=== PATIENT | female | born 1965 | race Caucasian/White ===

== ENCOUNTER 2017-02-02 07:02 | Day surgery (SDC) | payer MEDICAID ==
[2017-02-02] MEDS ORDERED: Lactated Ringers 1,000 ML IV SCH (07:45)
[2017-02-02] MEDS ORDERED: Midazolam 1 MG/ML 2 ML SDV ONE (08:12)
[2017-02-02] MEDS ORDERED: Propofol 200 MG/20 ML SDV ONE ×2 (08:12→08:40)
[2017-02-02] MEDS ORDERED: fentaNYL 100 MCG/2 ML SDV ONE (08:12)
[2017-02-02 10:02] VITALS: BP 123/76
--- NOTE | 2017-02-02 13:59 | OR ---
DATE OF PROCEDURE: 02/02/2017 PREOPERATIVE DIAGNOSES: Colon cancer screening, chronic diarrhea. POSTOPERATIVE DIAGNOSES: Unremarkable colonoscopy, chronic diarrhea. PROCEDURE: Colonoscopy to the cecum with random colon biopsies. ANESTHESIA: IV anesthesia with monitored anesthesia care. INDICATION: This 51-year-old white female is referred for a colonoscopy for colon cancer screening. She has never had a colonoscopic exam. She did mention off hand that she has chronic diarrhea. Because of this, we plan on random colon biopsies if everything looks fine. I counseled her for the procedure including risks and alternatives , and she gave her informed consent to proceed. DESCRIPTION OF PROCEDURE: The patient was placed in the left lateral decubitus position. IV anesthesia was administered by the Anesthesia Service. Time-out was held. A rectal exam was performed, which was unremarkable. The flexible video Olympus colonoscope was introduced through her anus, up her rectum, and out her colon all way to the cecum. Once the cecum was reached, the scope was slowly withdrawn examining the mucosa throughout. No mucosal abnormalities were noted. We did obtain random colonic biopsies throughout the entire colon. The scope was retroflexed in the rectum with the distal rectum appearing unremarkable. The scope was straightened and removed. She tolerated the procedure well. Alan Avelar MD /[id number] NURY
== END 2017-02-02 10:03 | disposition home or self-care (01) ==
LOC: JP.SDS 07:02
PROVIDERS: ATTEND Surgery
PROC: 0DBE8ZX Excision of Large Intestine, Via Natural or Artificial Opening Endoscopic, Diagnostic (ICD-10-PCS; principal; 2017-02-02)
DX: K52.9 Noninfective gastroenteritis and colitis, unspecified (principal)
CPT/HCPCS: 45380; J2250; J2704; J3010; J7120; 88305

== ENCOUNTER → 2018-11-01 | Outpatient (CLI) | payer MEDICAID ==
[~2018-11-01] MED LIST: Gadoteridol 279.3 MG/ML 15 ML SDV IV SCH
--- NOTE | 2018-11-02 16:11 | CRLMR ---
INDICATION: Left trigeminal neuralgia. Comparison 01/20/2016. TECHNIQUE: Multiplanar T1, T2, FLAIR and diffusion-weighted imaging. Post gadolinium T1 weighted sequences. Additional pre and post gadolinium sequences of the skullbase. FINDINGS: Normal brain parenchymal morphology and signal intensity. Stable 13 mm T2 hyperintense cystic lesion along the medial left temporal lobe consistent with an arachnoid cyst or choroidal fissure cyst. No evidence of enhancement or surrounding edema. No evidence of significant mass effect upon the immediately adjacent left cerebral peduncle. No intracranial hemorrhage. No abnormal ventricular dilatation. Intracranial vascular flow voids are preserved. No mass effect. No midline shift. No restricted diffusion to suggest acute ischemia. No abnormal enhancement or enhancing lesions. Dedicated sequences the skullbase demonstrates normal course of cranial nerves 7 and 8 from the root entry zone to the fundus of the IAC`s. No abnormal mass or enhancement. There is a vascular structure which courses immediately inferior to the root entry zone and cisternal segment of the left trigeminal nerve with very minimal deviation laterally.. Finding may represent an underlying vascular loop. No abnormal enhancement along the course of the trigeminal nerves. Normal cavernous sinuses bilaterally. No abnormal widening or enhancement at foramen ovale bilaterally. Bilateral orbits are unremarkable. Normal appearing sella. Visualized paranasal sinuses and mastoid air cells are unremarkable. IMPRESSION: 1. No acute intracranial abnormality 2. Normal brain parenchymal morphology and signal intensity. 3. 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 4. Dedicated sequences of the skullbase demonstrates vascular structure coursing immediately inferior to the root entry zone the cisternal segment of the left trigeminal nerve with very minimal deviation. Finding may represent an underlying vascular loop. 5. No abnormal enhancement along the course of the bilateral trigeminal nerves. Normal cavernous sinuses bilaterally. Dictated by Ben Paul MD @ 11/02/2018 4:10:22 PM Dictated by: Ben Paul MD @ 11/02/2018 16:10:30 (Electronically Signed)
== END ==
LOC: JP.MRI 14:19
PROVIDERS: ATTEND Physician Assistant
DX: G50.0 Trigeminal neuralgia (principal); G43.709 Chronic migraine without aura, not intractable, without status migrainosus
CPT/HCPCS: 70553; A9576; A9579

== ENCOUNTER 2018-11-23 07:09 | Emergency (ER) | payer MEDICAID ==
[2018-11-23] MEDS ORDERED: Metoclopramide 10 MG/2 ML SDV IVPUSH ONE (07:54)
[2018-11-23] MEDS ORDERED: Cholestyramine/Sucrose Powder 4 GM Packet PO ONE (07:54)
[2018-11-23] MEDS ORDERED: Lactated Ringers 1,000 ML IV ONE (07:54)
[2018-11-23] MEDS ORDERED: HYDROmorphone 0.5 MG/0.5 ML Syringe IVPUSH ONE (07:55)
--- NOTE | 2018-11-23 08:02 | EDM.PDOC ---
ED HPI GENERAL MEDICAL PROBLEM - General Chief Complaint: Gastrointestinal Problem Stated Complaint: WEAK Time Seen by Provider: 11/23/18 07:45 Source of Information: Reports: Patient, RN History Limitations: Reports: Other (no old records available regarding her current condition, her provider not immediately available.) - History of Present Illness INITIAL COMMENTS - FREE TEXT/NARRATIVE: 53 yo female was dx about a year ago with colitis, later diagnosed via colonoscopy with 'lymphocytic colitis'. She is managed with oral budesonide. Initially this med controlled her condition, over the past month her sx's have markedly worsened and a referral was placed to GI that she has not yet had. She has had nausea recently that has not been tx'd that has progressed now to include vomiting (four times since last night). She states she is stooling every few minutes stool with mucous, but no blood. There is no fever. She was told she could take Imodium up to 4 times/daily, but his is not helping. She last had blood work about 2 weeks ago mainly to check her Tegretol levels for management of her trigeminal neuralgia. She had an appt in the clinic yesterday and was told there was nothing more they could do for her and that she would have to go to the ER. Onset: Gradual Onset Date: 11/22/17 Duration: Week(s): (52, worse over the past 4 weeks), Constant, Getting Worse Location: Reports: Abdomen Quality: Reports: Ache Severity: Moderate Improves with: Reports: None Worsens with: Reports: Other (time) Context: Reports: Other (see HPI) Associated Symptoms: Reports: Loss of Appetite, Nausea/Vomiting. 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 (see below) (budesonide orally and lopermide 4 daily) Abdominal Pain Score (Numeric/FACES): 9 - Related Data Allergies Allergy/AdvReac Type Severity Reaction Status Date / Time acetaminophen [From Vicodin] Allergy Cannot Verified 11/01/18 14:30 Remember hydrocodone [From Vicodin] Allergy Cannot Verified 11/01/18 14:30 Remember propoxyphene napsylate Allergy Cannot Verified 11/01/18 14:30 [From Darvocet-N 100] Remember Home Meds: Home Meds busPIRone [Buspar] 7.5 mg PO BID 09/08/15 [History] Gabapentin [Neurontin] 800 mg PO TID 09/15/16 [History] carBAMazepine [Carbamazepine] 200 mg PO BEDTIME 09/15/16 [History] LORazepam [Ativan] 0.5 mg PO TID PRN 01/31/17 [History] Baclofen 10 mg PO BID 11/23/18 [History] Budesonide [Budesonide EC] 9 mg PO DAILY 11/23/18 [History] Cholestyramine (With Sugar) [Cholestyramine Powder] 4 g PO BID 11/23/18 [History ] Loperamide [Imodium] 2 mg PO QID PRN 11/23/18 [History] Mesalamine 800 mg PO TID #30 tablet.dr 11/23/18 [Rx] Ondansetron [Zofran ODT] 4 mg PO Q6H PRN #14 tab.dis 11/23/18 [Rx] Potassium Chloride 10 meq PO TID #30 cap.er 11/23/18 [Rx] Past Medical History HEENT History: Reports: Impaired Vision, Other (See Below) Other HEENT History: trigeminal neurologia Cardiovascular History: Reports: None Respiratory History: Reports: None Gastrointestinal History: Reports: Chronic Diarrhea, Pancreatitis Genitourinary History: Reports: None [employer] History: Reports: Musculoskeletal History: Reports: None Neurological History: Reports: None Psychiatric History: Reports: Anxiety, Depression Endocrine/Metabolic History: Reports: None Hematologic History: Reports: None Immunologic History: Reports: None Oncologic (Cancer) History: Reports: None Dermatologic History: Reports: None - Infectious Disease History Infectious Disease History: Reports: Chicken Pox, Measles, Mumps - Past Surgical History Head Surgeries/Procedures: Reports: None HEENT Surgical History: Reports: None GI Surgical History: Reports: Appendectomy, Hernia Repair/Other Other GI Surgeries/Procedures: lymphocytic colitis. Female Surgical History: Reports: Oophorectomy Social & Family History - Family History HEENT: Reports: None Cardiac: Reports: None Respiratory: Reports: None GI: Reports: None : Reports: None OBGYN: Reports: None Musculoskeletal: Reports: None Neurological: Reports: None Psychiatric: Reports: None Endocrine/Metabolic: Reports: None Hematologic: Reports: None Immunologic: Reports: None Dermatologic: Reports: None Oncologic: Reports: None - Tobacco Use Smoking Status *Q: Heavy Tobacco Smoker Years of Tobacco use: 36 Packs/Tins Daily: 0.2 - Caffeine Use Caffeine Use: Reports: Coffee - Recreational Drug Use Recreational Drug Use: No ED ROS GENERAL - Review of Systems Review Of Systems: See Below Constitutional: Reports: No Symptoms HEENT: Reports: No Symptoms Respiratory: Reports: No Symptoms Cardiovascular: Reports: Lightheadedness (with standing) Endocrine: Reports: No Symptoms GI/Abdominal: Reports: Abdominal Pain, Diarrhea, Decreased Appetite, Nausea, Vomiting. Denies: Black Stool, Bloody Stool, Constipation, Distension, Flatus, Hematemesis, Hematochezia, Melena : Reports: Dysuria Musculoskeletal: Reports: No Symptoms Skin: Reports: No Symptoms Neurological: Reports: No Symptoms Psychiatric: Reports: No Symptoms ED EXAM, GI/ABD - Physical Exam Exam: See Below Text/Narrative:: Strong odor of tobacco smoke present. Exam Limited By: No Limitations General Appearance: Alert, WD/WN, No Apparent Distress, Other (Appears older than her stated age. ) Eyes: Bilateral: Normal Appearance Ears: Normal External Exam, Normal Canal, Hearing Grossly Normal, Normal TMs Nose: Normal Inspection, No Blood Throat/Mouth: Normal Inspection, Normal Lips, Normal Oropharynx, Normal Voice ( Voice consistent with chronic smoker.), No Airway Compromise Head: Atraumatic, Normocephalic Neck: Normal Inspection Respiratory/Chest: No Respiratory Distress, Lungs Clear, Normal Breath Sounds, No Accessory Muscle Use Cardiovascular: Regular Rate, Rhythm, No Edema GI/Abdominal Exam: Normal Bowel Sounds, Soft, No Distention, Tender (mild diffuse). No: Non-Tender Back Exam: Normal Inspection. No: CVA Tenderness (R), CVA Tenderness (L) Extremities: Normal Inspection, Normal Range of Motion, Non-Tender, No Pedal Edema Neurological: Alert, Oriented, CN II-XII Intact, Normal Cognition, No Motor/ Sensory Deficits Psychiatric: Normal Affect, Normal Mood Skin Exam: Warm, Dry, Intact, Normal Color, No Rash Course - Vital Signs Last Recorded V/S: Last Vital Signs Temp 36.0 C 11/23/18 08:29 Pulse 79 11/23/18 08:29 Resp 16 11/23/18 08:29 BP 126/58 L 11/23/18 08:29 Pulse Ox 94 L 11/23/18 08:29 - Orders/Labs/Meds Labs: Laboratory Tests 11/23/18 11/23/18 11/23/18 Range/Units 07:55 07:55 08:29 WBC 14.9 H (4.5-11.0) K/uL RBC 4.84 (3.30-5.50) M/uL Hgb 15.3 H (12.0-15.0) g/dL Hct 45.2 (36.0-48.0) % MCV 93 (80-98) fL MCH 32 H (27-31) pg MCHC 34 (32-36) % Plt Count 302 (150-400) K/uL Sodium 141 (140-148) mmol/L Potassium 3.5 L (3.6-5.2) mmol/L Chloride 105 (100-108) mmol/L Carbon Dioxide 25 (21-32) mmol/L Anion Gap 14.5 H (5.0-14.0) mmol/L BUN 10 (7-18) mg/dL Creatinine 0.7 (0.6-1.0) mg/dL Est Cr Clr Drug Dosing 78.94 mL/min Estimated GFR (MDRD) > 60 (>60) Glucose 106 (74-106) mg/dL Calcium 9.2 (8.5-10.1) mg/dL Magnesium (1.8-2.4) mg/dL Total Bilirubin 0.3 (0.2-1.0) mg/dL AST 34 (15-37) U/L ALT 46 D (12-78) U/L Alkaline Phosphatase 90 (46-116) U/L Total Protein 6.5 (6.4-8.2) g/dL Albumin 3.2 L (3.4-5.0) g/dL Globulin 3.3 (2.3-3.5) g/dL Albumin/Globulin Ratio 1.0 L (1.2-2.2) Urine Color Yellow Urine Appearance Clear Urine pH 6.0 (4.5-8.0) Ur Specific [employer] [place] 1.010 (1.008-1.030) Urine Protein Negative (NEGATIVE) mg/dL Urine Glucose (UA) Normal (NEGATIVE) mg/dL Urine Ketones Negative (NEGATIVE) mg/dL Urine Occult Blood Negative (NEGATIVE) Urine Nitrite Negative (NEGATIVE) Urine Bilirubin Negative (NEGATIVE) Urine Urobilinogen Normal (NORMAL) mg/dL Ur Leukocyte Esterase Negative (NEGATIVE) Urine RBC 0-5 (0-5) Urine WBC Not seen (0-5) Ur Epithelial Cells Not seen Amorphous Sediment Not seen Urine Bacteria Not seen Urine Mucus Not seen 11/23/18 Range/Units 08:37 WBC (4.5-11.0) K/uL RBC (3.30-5.50) M/uL Hgb (12.0-15.0) g/dL Hct (36.0-48.0) % MCV (80-98) fL MCH (27-31) pg MCHC (32-36) % Plt Count (150-400) K/uL Sodium (140-148) mmol/L Potassium (3.6-5.2) mmol/L Chloride (100-108) mmol/L Carbon Dioxide (21-32) mmol/L Anion Gap (5.0-14.0) mmol/L BUN (7-18) mg/dL Creatinine (0.6-1.0) mg/dL Est Cr Clr Drug Dosing mL/min Estimated GFR (MDRD) (>60) Glucose (74-106) mg/dL Calcium (8.5-10.1) mg/dL Magnesium 1.9 (1.8-2.4) mg/dL Total Bilirubin (0.2-1.0) mg/dL AST (15-37) U/L ALT (12-78) U/L Alkaline Phosphatase (46-116) U/L Total Protein (6.4-8.2) g/dL Albumin (3.4-5.0) g/dL Globulin (2.3-3.5) g/dL Albumin/Globulin Ratio (1.2-2.2) Urine Color Urine Appearance Urine pH (4.5-8.0) Ur Specific [employer] [place] (1.008-1.030) Urine Protein (NEGATIVE) mg/dL Urine Glucose (UA) (NEGATIVE) mg/dL Urine Ketones (NEGATIVE) mg/dL Urine Occult Blood (NEGATIVE) Urine Nitrite (NEGATIVE) Urine Bilirubin (NEGATIVE) Urine Urobilinogen (NORMAL) mg/dL Ur Leukocyte Esterase (NEGATIVE) Urine RBC (0-5) Urine WBC (0-5) Ur Epithelial Cells Amorphous Sediment Urine Bacteria Urine Mucus Meds: Medications Discontinued Medications Generic Name Dose Route Start Last Admin Trade Name Freq PRN Reason Stop Dose Admin Cholestyramine Resin 4 gm 11/23/18 07:54 11/23/18 08:08 Cholestyramine Packet PO 11/23/18 07:55 4 gm ONETIME ONE Administration Hydromorphone HCl 0.5 mg 11/23/18 07:55 11/23/18 08:06 Dilaudid IVPUSH 11/23/18 07:56 0.5 mg ONETIME ONE Administration Lactated Ringer's 1,000 mls @ 1,000 mls/hr 11/23/18 07:54 11/23/18 08:08 Ringers, Lactated IV 11/23/18 08:53 1,000 mls/hr BOLUS ONE Administration Mesalamine 800 mg 11/23/18 08:54 11/23/18 09:10 Asacol Hd PO 11/23/18 08:55 800 mg NOW STA Administration Metoclopramide HCl 10 mg 11/23/18 07:54 11/23/18 08:07 Reglan IVPUSH 11/23/18 07:55 10 mg ONETIME ONE Administration Potassium Chloride 40 meq 11/23/18 08:58 11/23/18 09:05 Potassium Chloride PO 11/23/18 08:59 40 meq ONETIME ONE Administration Departure - Departure Time of Disposition: 09:24 Disposition: Home, Self-Care 01 Condition: Fair Clinical Impression: Lymphocytic colitis - Discharge Information *PRESCRIPTION DRUG MONITORING PROGRAM REVIEWED*: No *COPY OF PRESCRIPTION DRUG MONITORING REPORT IN PATIENT NINO: No Prescriptions: Mesalamine 800 mg PO TID #30 tablet. Potassium Chloride 10 meq PO TID #30 cap.er Instructions: Nausea and Vomiting, Adult, [id number] Referrals: PCP,None [Primary Care Provider] - Forms: ED Department Discharge Additional Instructions: Take mesalamine and potassium as directed. If your diarrhea stops, you may hold your potassium. Continue your other medicines as before today's visit. Use Zofran every 6 hrs as needed for nausea. F/U on your gastroenterology referral. Return to the clinic for recheck in 10 days or sooner if not improving. Avoid artificial sweeteners, tobacco, dairy(yogurt OK), high fat meals, & caffeine. Any item that has caused diarrhea for you in the past should be avoided.
[2018-11-23 08:31] VITALS: BP 126/58
[2018-11-23] MEDS ORDERED: Mesalamine 800 MG Tab.CR PO STA (08:54)
[2018-11-23] MEDS ORDERED: Potassium Chloride 10 MEQ Cap.ER PO ONE (08:58)
== END 2018-11-23 09:38 | disposition home or self-care (01) ==
LOC: JP.ED 07:09
DX: K52.832 Lymphocytic colitis (principal); F41.9 Anxiety disorder, unspecified; F32.9 Major depressive disorder, single episode, unspecified; F17.210 Nicotine dependence, cigarettes, uncomplicated; Z79.899 Other long term (current) drug therapy
CPT/HCPCS: 36415; 80053; 81001; 83735; 85027; 96361; 96374; 96375; 99284; A9270; J1170; J2765; J7120

== ENCOUNTER 2021-01-13 06:58 | Day surgery (SDC) | payer MEDICAID ==
[2021-01-13] MEDS ORDERED: Sodium Chloride 0.9% 1,000 ML IV SCH (07:45)
[2021-01-13] MEDS ORDERED: Propofol 200 MG/20 ML SDV ONE (07:49)
[2021-01-13] MEDS ORDERED: Midazolam 1 MG/ML 2 ML SDV ONE (07:49)
[2021-01-13] MEDS ORDERED: fentaNYL 100 MCG/2 ML SDV ONE (07:49)
[2021-01-13 09:58] VITALS: BP 121/71; PULSE 70
--- NOTE | 2021-01-13 11:37 | OR ---
DATE OF PROCEDURE: 01/13/2021 SURGEON: Kenton Del Angel MD PROCEDURE: Colonoscopy. FINDINGS: No gross abnormalities. PATHOLOGY: Random biopsies of ascending, transverse, and sigmoid colon and rectum using cold biopsy forceps. PREOPERATIVE DIAGNOSIS: Colitis noted on CT scan requiring biopsies for evaluation of this positive finding on CT scan. POSTOPERATIVE DIAGNOSES: Colitis noted on CT scan requiring biopsies for evaluation of this positive finding on CT scan. RISKS: Risks, benefits, alternatives, and limitations including but not limited to infection, bleeding, perforation, false positives, and false negatives were explained to the patient, and they wished to proceed. PROCEDURE IN DETAIL: The patient was placed in left lateral decubitus position. Digital rectal exam was performed without abnormality. Scope was introduced and advanced atraumatically to the ileocecal valve. A photo was taken of the appendiceal orifice. The scope was brought back to the ascending, transverse, and descending colon and retroflexed. No evidence of colitis. No old or new blood. No polyps. No diverticulosis. No abnormalities on retroflexion. Random biopsies were performed at the aforementioned locations to further evaluate this CT scan finding of colitis. However, no gross abnormalities were noted to correlate with this imaging finding. Greater than 8 minutes was spent removing the scope. The prep was acceptable, approximately 90% of luminal surface could be seen. The patient tolerated the procedure well. Kenton Del Angel MD /[id number]
== END 2021-01-13 10:30 | disposition home or self-care (01) ==
LOC: JP.SDS 06:58
PROVIDERS: ATTEND Surgery
DX: K62.89 Other specified diseases of anus and rectum (principal); K63.9 Disease of intestine, unspecified; K52.9 Noninfective gastroenteritis and colitis, unspecified; F17.200 Nicotine dependence, unspecified, uncomplicated
CPT/HCPCS: 45380; J2250; J2704; J3010; J7030; 88305

== ENCOUNTER 2021-04-05 07:11 | Emergency (ER) | payer MEDICAID ==
[2021-04-05 07:37] VITALS: BP 125/87; PULSE 94
--- NOTE | 2021-04-05 07:48 | EDM.PDOC ---
ED HPI GENERAL MEDICAL PROBLEM - General Chief Complaint: General Stated Complaint: POSSIBLE SIGNS OF COVID Time Seen by Provider: 04/05/21 07:41 Source of Information: Reports: Patient, RN Notes Reviewed History Limitations: Reports: No Limitations - History of Present Illness INITIAL COMMENTS - FREE TEXT/NARRATIVE: 55-year-old female presents emergency department day complaint of sinus congestion and head cold symptoms, she has been ill for about 12 days has not had any fevers lots of postnasal drip no shortness of breath or chest pain Abdomen Pain Score (Numeric/FACES): 5 - Related Data Allergies Allergy/AdvReac Type Severity Reaction Status Date / Time acetaminophen [From Vicodin] AdvReac Nausea and Verified 01/12/21 12:35 Vomiting hydrocodone [From Vicodin] AdvReac Nausea and Verified 01/12/21 12:35 Vomiting propoxyphene napsylate AdvReac Nausea and Verified 01/12/21 12:35 [From Darvocet-N 100] Vomiting Home Meds: Home Meds Gabapentin [Neurontin] 800 mg PO TID 09/15/16 [History] LORazepam [Ativan] 0.5 mg PO TID PRN 01/31/17 [History] Potassium Chloride 10 meq PO TID #30 cap.er 11/23/18 [Rx] Cyclobenzaprine [Flexeril] 10 mg PO BEDTIME 01/07/21 [History] Past Medical History HEENT History: Reports: Impaired Vision, Other (See Below) Other HEENT History: trigeminal neurologia Gastrointestinal History: Reports: Chronic Diarrhea, Pancreatitis CAR WHACKER History: Reports: , Other (See Below) Other CAR WHACKER History: bilateral oophorectomy Neurological History: Reports: Other (See Below) Other Neuro History: trigeminal neuralgia Psychiatric History: Reports: Anxiety, Depression Hematologic History: Reports: None Immunologic History: Reports: None Oncologic (Cancer) History: Reports: None Dermatologic History: Reports: None - Infectious Disease History Infectious Disease History: Reports: Chicken Pox, Measles, Mumps - Past Surgical History Head Surgeries/Procedures: Reports: None HEENT Surgical History: Reports: None GI Surgical History: Reports: Appendectomy, Hernia Repair/Other Other GI Surgeries/Procedures: lymphocytic colitis. Female Surgical History: Reports: Oophorectomy Social & Family History - Family History HEENT: Reports: None Cardiac: Reports: None Respiratory: Reports: None GI: Reports: None : Reports: None OBGYN: Reports: None Musculoskeletal: Reports: None Neurological: Reports: None Psychiatric: Reports: None Endocrine/Metabolic: Reports: None Hematologic: Reports: None Immunologic: Reports: None Dermatologic: Reports: None Oncologic: Reports: None - Tobacco Use Tobacco Use Status *Q: Never Tobacco User - Caffeine Use Caffeine Use: Reports: Coffee - Recreational Drug Use Recreational Drug Use: No ED ROS GENERAL - Review of Systems Review Of Systems: See Below Constitutional: Denies: Fever, Chills HEENT: Reports: Sinus Problem, Other (Postnasal drip) Respiratory: Reports: No Symptoms Cardiovascular: Reports: No Symptoms GI/Abdominal: Reports: No Symptoms ED EXAM, GENERAL - Physical Exam Exam: See Below Exam Limited By: No Limitations General Appearance: Alert, WD/WN, No Apparent Distress Ears: Normal External Exam, Normal Canal, Hearing Grossly Normal, Normal TMs Nose: Normal Inspection, Normal Mucosa, No Blood Throat/Mouth: Normal Inspection, Normal Lips, Normal Teeth, Normal Gums, Normal Oropharynx, Normal Voice, No Airway Compromise Respiratory/Chest: No Respiratory Distress, Lungs Clear, Normal Breath Sounds, No Accessory Muscle Use, Chest Non-Tender Cardiovascular: Regular Rate, Rhythm, No Murmur Course - Vital Signs Last Recorded V/S: Last Vital Signs Temp 97.1 F 04/05/21 07:36 Pulse 94 04/05/21 07:36 Resp 16 04/05/21 07:36 BP 125/87 04/05/21 07:36 Pulse Ox 96 04/05/21 07:36 - Orders/Labs/Meds Orders: Active Orders 24 hr Category Date Time Status CULTURE STREP A CONFIRMATION [RM] Stat Lab 04/05/21 08:39 Results STREP SCRN A RAPID W CULT CONF [RM] Stat Lab 04/05/21 08:39 Results Labs: Laboratory Tests 04/05/21 04/05/21 04/05/21 Range/Units 07:36 07:55 07:55 WBC 5.4 (4.5-11.0) K/uL RBC 4.98 (3.30-5.50) M/uL Hgb 15.7 H (12.0-15.0) g/dL Hct 44.8 (36.0-48.0) % MCV 90 (80-98) fL MCH 32 H (27-31) pg MCHC 35 (32-36) % Plt Count 227 (150-400) K/uL Neut % (Auto) 59.1 (36-66) % Lymph % (Auto) 31.9 (24-44) % [place] % (Auto) 7.7 H (2-6) % Eos % (Auto) 0.9 L (2-4) % Baso % (Auto) 0.4 (0-1) % Sodium 142 (140-148) mmol/L Potassium 3.6 (3.6-5.2) mmol/L Chloride 102 (100-108) mmol/L Carbon Dioxide 28 (21-32) mmol/L Anion Gap 12.1 (5.0-14.0) mmol/L BUN 14 (7-18) mg/dL Creatinine 0.7 (0.6-1.0) mg/dL Est Cr Clr Drug Dosing 81.71 mL/min Estimated GFR (MDRD) > 60 (>60) Glucose 96 (74-106) mg/dL Lactic Acid (0.4-2.0) mmol/L Calcium 8.9 (8.5-10.1) mg/dL Total Bilirubin 0.3 (0.2-1.0) mg/dL AST 12 L (15-37) U/L ALT 20 (12-78) U/L Alkaline Phosphatase 101 (46-116) U/L Total Protein 6.5 (6.4-8.2) g/dL Albumin 3.7 (3.4-5.0) g/dL Globulin 2.8 (2.3-3.5) g/dL Albumin/Globulin Ratio 1.3 (1.2-2.2) SARS CoV-2 RNA Rapid ANNAMARIA Negative 04/05/21 Range/Units 07:55 WBC (4.5-11.0) K/uL RBC (3.30-5.50) M/uL Hgb (12.0-15.0) g/dL Hct (36.0-48.0) % MCV (80-98) fL MCH (27-31) pg MCHC (32-36) % Plt Count (150-400) K/uL Neut % (Auto) (36-66) % Lymph % (Auto) (24-44) % [place] % (Auto) (2-6) % Eos % (Auto) (2-4) % Baso % (Auto) (0-1) % Sodium (140-148) mmol/L Potassium (3.6-5.2) mmol/L Chloride (100-108) mmol/L Carbon Dioxide (21-32) mmol/L Anion Gap (5.0-14.0) mmol/L BUN (7-18) mg/dL Creatinine (0.6-1.0) mg/dL Est Cr Clr Drug Dosing mL/min Estimated GFR (MDRD) (>60) Glucose (74-106) mg/dL Lactic Acid 0.7 (0.4-2.0) mmol/L Calcium (8.5-10.1) mg/dL Total Bilirubin (0.2-1.0) mg/dL AST (15-37) U/L ALT (12-78) U/L Alkaline Phosphatase (46-116) U/L Total Protein (6.4-8.2) g/dL Albumin (3.4-5.0) g/dL Globulin (2.3-3.5) g/dL Albumin/Globulin Ratio (1.2-2.2) SARS CoV-2 RNA Rapid ANNAMARIA Departure - Departure Time of Disposition: 09:08 Disposition: Home, Self-Care 01 Condition: Fair Clinical Impression: Sinusitis Qualifiers: Sinusitis location: frontal Chronicity: acute Recurrence: non-recurrent Qualified Code(s): J01.10 - Acute frontal sinusitis, unspecified - Discharge Information Instructions: Sinusitis, Adult, [id number] Referrals: Kathia Ortiz MD [Primary Care Provider] - Forms: ED Department Discharge Additional Instructions: Continue with symptomatic care, please followup with your primary care provider in 3-5 days if not better, please call return to the emergency department with worsening of symptoms. Sepsis Event Note (ED) - Evaluation Sepsis Screening Result: Possible Sepsis Risk - Focused Exam Vital Signs: Vital Signs Temp Pulse Resp BP Pulse Ox 04/05/21 07:36 97.1 F 94 16 125/87 96 - My Orders Last 24 Hours: My Active Orders 04/05/21 08:39 CULTURE STREP A CONFIRMATION [RM] Stat STREP SCRN A RAPID W CULT CONF [] Stat - Assessment/Plan Last 24 Hours: My Active Orders 04/05/21 08:39 CULTURE STREP A CONFIRMATION [RM] Stat STREP SCRN A RAPID W CULT CONF [RM] Stat Plan: Assessment Acuity = acute Site and laterality = sinusitis Etiology = probably viral Manifestations = none Location of injury = Home Lab values = CBC, CMP unremarkable Covid was negative rapid strep negative Plan Recommend continue symptomatic care follow-up primary care 3 to 5 days if not better This note was dictated using [employer] voice recognition software please call with any questions on syntax or grammar.
== END 2021-04-05 08:45 | disposition home or self-care (01) ==
LOC: JP.ED 07:11
DX: J01.10 Acute frontal sinusitis, unspecified (principal); Z88.5 Allergy status to narcotic agent; Z88.8 Allergy status to other drugs, medicaments and biological substances; Z20.822 Contact with and (suspected) exposure to COVID-19
CPT/HCPCS: 36415; 80053; 83605; 85025; 87081; 87880-QW; 99283; U0002

== ENCOUNTER 2021-10-20 11:20 | Emergency (ER) | payer MEDICAID ==
[2021-10-20 11:59] VITALS: BP 128/75; PULSE 80
[2021-10-20] MEDS: Ketorolac 30 MG/ML SDV IM ONE (12:46)
== END 2021-10-20 14:25 | disposition home or self-care (01) ==
LOC: JP.ED 11:20
DX: N20.0 Calculus of kidney (principal); Z88.5 Allergy status to narcotic agent; Z88.8 Allergy status to other drugs, medicaments and biological substances; Z72.0 Tobacco use
CPT/HCPCS: 74176; 74176-26; 96372; 99283; 99284-25; J1885

== ENCOUNTER 2022-06-09 06:03 | Emergency (ER) | payer MEDICAID ==
[2022-06-09 06:27] VITALS: BP 146/59; PULSE 72
[2022-06-09 07:03] LABS: CORONAVIRUS COVID-19 NAA NEGATIVE (NEGATIVE)
== END 2022-06-09 07:30 | disposition home or self-care (01) ==
LOC: JP.ED 06:03
DX: J20.9 Acute bronchitis, unspecified (principal); J01.40 Acute pansinusitis, unspecified; Z88.6 Allergy status to analgesic agent; Z88.5 Allergy status to narcotic agent; Z88.8 Allergy status to other drugs, medicaments and biological substances; Z79.899 Other long term (current) drug therapy; Z90.49 Acquired absence of other specified parts of digestive tract; Z20.822 Contact with and (suspected) exposure to COVID-19
CPT/HCPCS: 0241U; 36415; 71046; 80048; 85025; 86140; 99285

== ENCOUNTER 2023-03-11 16:15 | Emergency (ER) | payer MEDICAID ==
[2023-03-11] MEDS ORDERED: methylPREDNISolone Sodium Succinate 125 MG/2 ML SDV IV ONE (16:23)
[2023-03-11] MEDS ORDERED: EPINEPHrine 1 MG/ML SDV IM ONE ×2 (16:23→17:04)
[2023-03-11] MEDS ORDERED: Sodium Chloride 0.9% 10 ML Syringe FLUSH PRN (16:23)
[2023-03-11] MEDS ORDERED: EPINEPHrine 1 MG/ML SDV SUBCUT ONE (17:03)
[2023-03-11] MEDS ORDERED: LORazepam 2 MG/ML SDV IVPUSH ONE (17:03)
[2023-03-11 18:23] VITALS: BP 130/56; PULSE 90
== END 2023-03-11 18:37 | disposition home or self-care (01) ==
LOC: JP.ED 16:15
DX: T78.2XXA Anaphylactic shock, unspecified, initial encounter (principal); Z91.030 Bee allergy status; Z88.5 Allergy status to narcotic agent; Z88.8 Allergy status to other drugs, medicaments and biological substances
CPT/HCPCS: 96372; 96374; 96375; 99282; J0171; J2060; J2930